=== PATIENT | female | born 1995 | race African-American/Black ===

== ENCOUNTER 2019-04-13 13:17 | Emergency (ER) | payer MEDICAID ==
[~2019-04-13] VITALS: Ht 167.6 cm; Wt 80.0 kg
[2019-04-13] MEDS ORDERED: IBUPROFEN 600MG TABLET PO ONE (15:15)
[2019-04-13 16:55] VITALS: BP 103/63
== END 2019-04-13 17:30 | disposition home or self-care (01) ==
LOC: ER 13:17
DX: S93.401A Sprain of unspecified ligament of right ankle, initial encounter (principal); W18.49XA Other slipping, tripping and stumbling without falling, initial encounter; Y93.89 Activity, other specified; Y92.89 Other specified places as the place of occurrence of the external cause
CPT/HCPCS: 73610; 73630; 81025; 99283